=== PATIENT | male | born 1950 | race Caucasian/White ===

== ENCOUNTER → 2021-08-19 | Outpatient (CLI) | payer MEDICARE ==
[2021-08-19 15:40] LABS: HEMOGLOBIN A1c 5.3 %
[2021-08-19 15:58] LABS: FREE T4 0.81 NG/DL (0.76-1.46); RHEUMATOID FACTOR QUANT < 10.0 IU/ML (<15.0); VITAMIN B12 LEVEL 1094 PG/ML
[2021-08-25 10:12] LABS: DRVV SCREEN 51.3 SEC
[2021-08-25 10:20] LABS: PTT LUPUS TYPE ANTICOAG SCREEN 1.4 (0-1.2)
[2021-08-25 10:28] LABS: DRVV CONFIRM 44.1 SEC; LUPUS CONFIRM RATIO 1.1
[2021-08-25 10:35] LABS: NORMALIZED RATIO 1.27 (0.00-1.20)
[2021-08-25 13:06] LABS: ALBUMIN % 59.6 % (55.8-66.1)
[2021-08-25 13:07] LABS: ALBUMIN 4.17 GM/DL (3.29-5.55); ALPHA-1-GLOBULIN % 4.8 % (2.9-4.9); ALPHA-1-GLOBULINS 0.34 GM/DL (0.17-0.41); ALPHA-2-GLOBULINS 0.84 GM/DL (0.42-0.99); BETA-1-GLOBULINS 0.39 GM/DL (0.28-0.60); BETA-1-GLOBULINS % 5.5 % (4.7-7.2); BETA-2-GLOBULINS 0.36 GM/DL (0.19-0.55); BETA-2-GLOBULINS % 5.2 % (3.2-6.5); GAMMA GLOBULIN % 12.9 % (11.1-18.8)
[2021-08-27 12:43] LABS: HEXAGONAL PHASE PHOSPHOLIPID 2 sec (0-11)
[2021-08-29 14:10] LABS: ANTINUCLEAR ANTIBODIES DIRECT Negative (Negative); VITAMIN B1 LEVEL WHOLE BLOOD 212.6 nmol/L (66.5-200.0); VITAMIN B6,PYRIDOXAL PHOSPHATE 63.5 ug/L (3.4-65.2); VITAMIN E(ALPHA TOCOPHEROL) 30.8 mg/L (9.0-29.0); VITAMIN E(GAMMA TOCOPHEROL) 0.4 mg/L (0.5-4.9)
== END ==
LOC: M PLALAB 12:33
PROVIDERS: ATTEND Psychiatry & Neurology Neurology
DX: G90.09 Other idiopathic peripheral autonomic neuropathy (principal); M79.671 Pain in right foot; M79.672 Pain in left foot; Z79.899 Other long term (current) drug therapy

== ENCOUNTER → 2021-11-21 | Outpatient (CLI) | payer MEDICARE ==
[2021-11-24 05:07] LABS: DRVV SCREEN 39.9 SEC
[2021-11-24 05:28] LABS: PTT LUPUS TYPE ANTICOAG SCREEN 1.1 (0-1.2)
== END ==
LOC: M PLALAB 11:30
PROVIDERS: ATTEND Psychiatry & Neurology Neurology
DX: Z79.01 Long term (current) use of anticoagulants (principal)

== ENCOUNTER 2022-06-11 10:03 | Emergency (ER) | payer MEDICARE, OTHER ==
[~2022-06-11] VITALS: Ht 172.7 cm; Wt 114.8 kg
[2022-06-11 10:31] LABS: BASO % 0.2 % (0.0-1.0); EOS # 0.1 10^3/uL (0.0-0.5); EOS % 0.7 % (0.0-3.0); HEMATOCRIT 42.9 % (42.0-52.0); HEMOGLOBIN 14.9 g/dl (13.5-17.5); LYMPH # 1.1 10^3/uL (1.5-5.0); LYMPH % 8.5 % (24.0-44.0); MEAN CORPUSCULAR HEMOGLOBIN 32.3 pg (27.0-33.0); MEAN CORPUSCULAR HGB CONC 34.7 g/dl (32.0-36.5); MEAN CORPUSCULAR VOLUME 93.1 fl (80.0-96.0); MONO # 1.1 10^3/uL (0.0-0.8); MONO % 8.6 % (2.0-8.0); NEUTROPHILS # 10.2 10^3/uL (1.5-8.5); NEUTROPHILS % 81.4 % (36.0-66.0); PLATELET COUNT, AUTOMATED 150 10^3/uL (150-450); RED BLOOD COUNT 4.61 10^6/uL (4.30-6.10); WHITE BLOOD COUNT 12.5 10^3/uL (4.0-10.0)
[2022-06-11] MEDS ORDERED: CENT1TAB PO (10:35)
[2022-06-11] MEDS ORDERED: ALLO100T PO (10:35)
[2022-06-11] MEDS ORDERED: ALPH600C3 PO (10:35)
[2022-06-11] MEDS ORDERED: ACETAMINOPHEN 500 MG TAB PO ONE (10:35)
[2022-06-11] MEDS ORDERED: HYDR12.55 PO (10:35)
[2022-06-11] MEDS ORDERED: FINA5TAB2 PO (10:35)
[2022-06-11] MEDS ORDERED: LIPI80TA PO (10:35)
[2022-06-11] MEDS ORDERED: MICA40TA2 PO (10:35)
[2022-06-11] MEDS ORDERED: COQ150CH PO (10:35)
[2022-06-11] MEDS ORDERED: VITA100T59 PO (10:35)
[2022-06-11] MEDS ORDERED: ASPI81CH33 PO (10:35)
[2022-06-11] MEDS ORDERED: OMEP40CA5 PO (10:35)
[2022-06-11] MEDS ORDERED: ASPIRIN 81MG CHEW TABLET PO ONE (10:35)
[2022-06-11] MEDS ORDERED: PROB250C PO (10:35)
[2022-06-11] MEDS ORDERED: AMLO1TAB24 PO (10:35)
[2022-06-11] MEDS ORDERED: NOXI1TAB PO (10:35)
[2022-06-11 10:42] LABS: INR 0.96; PARTIAL THROMBOPLASTIN TIME 23.6 SECONDS (24.8-34.2)
[2022-06-11 10:59] LABS: LIPASE 34 U/L (12-53)
[2022-06-11 11:02] LABS: CPK CREATINE PHOSPHOKINASE 47 U/L (46-171)
[2022-06-11 11:05] LABS: ALBUMIN 3.8 G/DL (3.2-5.2); ALKALINE PHOSPHATASE 165 U/L (46-116); ALT/SGPT 24 U/L (7.0-40); AST/SGOT 14 U/L (<34); BILIRUBIN,DIRECT 0.3 MG/DL (<0.4); BLOOD UREA NITROGEN 17 MG/DL (9-23); CALCIUM LEVEL 9.1 MG/DL (8.3-10.6); CARBON DIOXIDE LEVEL 27 MMOL/L (20-31); CHLORIDE LEVEL 100 MMOL/L (98-107); CK-MB VALUE MASS < 1.0 NG/ML (<3.6); CREATININE FOR GFR 0.96 MG/DL (0.70-1.30); FREE T4 1.11 NG/DL (0.89-1.76); GLOMERULAR FILTRATION RATE > 60.0 (>42); GLUCOSE, FASTING 136 MG/DL (74-106); MB/CK RELATIVE INDEX 2.12 (< OR =4); SODIUM LEVEL 136 MMOL/L (136-145); THYROID STIMULATING HORMONE 1.334 uIU/ML (0.55-4.78); TOTAL PROTEIN 6.6 G/DL (5.7-8.2)
[2022-06-11 12:04] LABS: CK-MB VALUE MASS < 1.0 NG/ML (<3.6); CPK CREATINE PHOSPHOKINASE 46 U/L (46-171); MB/CK RELATIVE INDEX 2.17 (< OR =4)
[2022-06-11] MEDS ORDERED: ISOVUE-370 76% 100ML VIAL As Ordered ONE (12:11)
[2022-06-11 13:57] LABS: CK-MB VALUE MASS < 1.0 NG/ML (<3.6)
[2022-06-11 14:01] LABS: CPK CREATINE PHOSPHOKINASE 48 U/L (46-171); MB/CK RELATIVE INDEX 2.08 (< OR =4)
[2022-06-11 14:40] VITALS: BP 111/68
== END 2022-06-11 14:43 | disposition home or self-care (01) ==
LOC: EDBD 10:03 → M ED 10:03
DX: R09.1 Pleurisy (principal); I10 Essential (primary) hypertension; E78.5 Hyperlipidemia, unspecified; N40.0 Benign prostatic hyperplasia without lower urinary tract symptoms; Z90.49 Acquired absence of other specified parts of digestive tract; Z79.82 Long term (current) use of aspirin; Z79.899 Other long term (current) drug therapy
CPT/HCPCS: 36415; 71045; 71275; 80048; 80076; 82550; 82553; 83690; 83880; 84439; 84443; 84484; 85025; 85610; 85730; 93005; 93041; 94760; 99285; Q9967

== ENCOUNTER → 2022-08-21 | Outpatient (CLI) | payer MEDICARE, OTHER ==
[~2022-08-21] MED LIST: **SFHN** LIDOCAINE 1% MDV 20ML VIAL ONE; **SFHN** TRIAMCINOLONE ACETONIDE SUSP 40 MG/ML 1ML VIAL ONE; ALLO100T PO; ALPH600C3 PO; AMLO1TAB24 PO; ASPI81CH33 PO; CENT1TAB PO; COQ150CH PO; FINA5TAB2 PO; HYDR12.55 PO; ISOVUE-300 61% 100ML VIAL ONE; LIPI80TA PO; MICA40TA2 PO; NOXI1TAB PO; OMEP40CA5 PO; PROB250C PO; VITA100T59 PO
== END ==
LOC: M PLAIMG 15:22
PROVIDERS: ATTEND Orthopaedic Surgery
DX: M16.12 Unilateral primary osteoarthritis, left hip (principal)

== ENCOUNTER → 2022-09-29 | Outpatient (CLI) | payer MEDICARE, OTHER ==
[~2022-09-29] MED LIST changes: -**SFHN** LIDOCAINE 1% MDV 20ML VIAL ONE; -**SFHN** TRIAMCINOLONE ACETONIDE SUSP 40 MG/ML 1ML VIAL ONE; -ISOVUE-300 61% 100ML VIAL ONE
== END ==
LOC: M SLEEP 20:00
PROVIDERS: ATTEND Nurse Practitioner Family
DX: G47.33 Obstructive sleep apnea (adult) (pediatric) (principal)

== ENCOUNTER → 2023-10-11 | Outpatient (CLI) | payer MEDICARE, OTHER | LOC: M SOG 07:52 | PROVIDERS: ATTEND Physician Assistant | DX: M19.041 Primary osteoarthritis, right hand (principal) ==

== ENCOUNTER → 2024-11-25 | Outpatient (CLI) | payer MEDICARE, OTHER ==
[~2024-11-25] MED LIST changes: +ATOR-398 PO; -LIPI80TA PO; +[UNRECOGNIZED DRUG - CODE] SQ
== END ==
LOC: M CARPUL 09:40
PROVIDERS: ATTEND Physician Assistant
DX: R60.0 Localized edema (principal); R06.02 Shortness of breath